=== PATIENT | male | born 1975 ===

== ENCOUNTER 2017-02-08 13:18 | Inpatient (IN) | payer OTHER ==
[2017-02-08 13:44] VITALS: BMI 47.5
--- NOTE | 2017-02-08 14:16 | C.PDOC ---
History Of Present Illness 41 year old male presents to the ED for evaluation after undergoing a hernia repair by Dr. Norman a couple weeks ago. Patient had a routine follow up with Dr. Awan for staple removal yesterday and was noted to have infection of his wound. Patient was advised to present to the ED today for surgery. Patient denies fever, chills, or pain/discomfort at this time. Time Seen by Provider: 02/08/17 13:49 Chief Complaint (Nursing): Abnormal Skin Integrity History Per: Patient History/Exam Limitations: no limitations Onset/Duration Of Symptoms: Days Current Symptoms Are (Timing): Still Present Quality Of Symptoms: denies: Painful Additional History Per: Patient Past Medical History Reviewed: Historical Data, Nursing Documentation, Vital Signs Vital Signs: Last Vital Signs Temp 99.6 F 02/08/17 13:44 Pulse 87 02/08/17 13:44 Resp 20 02/08/17 13:44 BP 165/96 H 02/08/17 13:44 Pulse Ox 96 02/08/17 14:53 - Medical History PMH: No Chronic Diseases Surgical History: No Surg Hx Family History: States: Unknown Family Hx Review Of Systems Skin: Positive for: Other (possible infection of umbilical hernia repair wound ) Physical Exam - Physical Exam Appears: Non-toxic, No Acute Distress Skin: Normal Color, Warm, Dry Head: Atraumatic, Normacephalic Eye(s): bilateral: Normal Inspection Oral Mucosa: Moist Neck: Supple Chest: Symmetrical, No Deformity, No Tenderness Cardiovascular: Rhythm Regular, No Murmur Respiratory: Normal Breath Sounds, No Rales, No Rhonchi, No Wheezing Gastrointestinal/Abdominal: Soft, No Tenderness, No Guarding, No Rebound, Other (panniculus noted. horizontal incision below umbilicus with fernando and surrounding erythema. serosanguinous drainage weeping from wound ) Extremity: Normal ROM, Capillary Refill (less than 2 seconds ) Neurological/Psych: Oriented x3, Normal Speech, Normal Cognition Gait: Steady ED Course And Treatment O2 Sat by Pulse Oximetry: 96 (on RA ) Pulse Ox Interpretation: Normal Progress Note: Case discussed with Dr. Norman, who accepts the patient for admission and advises consult with Dr. Gould and Dr. Harrington. Disposition - Disposition Disposition: HOSPITALIZED Disposition Time: 14:57 Condition: STABLE - POA Present On Arrival: Surgical Site Infection - Clinical Impression Clinical Impression: Postoperative wound infection - Scribe Statement The provider has reviewed the documentation as recorded by the Scribe (Santa Overton) Provider Attestation: All medical record entries made by the Scribe were at my direction and personally dictated by me. I have reviewed the chart and agree that the record accurately reflects my personal performance of the history, physical exam, medical decision making, and the department course for this patient. I have also personally directed, reviewed, and agree with the discharge instructions and disposition.
[2017-02-08] MEDS ORDERED: Midazolam 2 MG/2 ML VIAL ONE (14:37)
[2017-02-08] MEDS ORDERED: Propofol 10 mg/ml Inj (20 ML) ONE ×2 (14:37→15:26)
[2017-02-08] MEDS ORDERED: ceFAZolin IV 2 gm in Dextrose 2 GM/50 ML BAG IVPB ONE (15:19)
[2017-02-08] MEDS ORDERED: Lactated Ringer's 1,000 ML IV ONE (15:25)
[2017-02-08] MEDS ORDERED: Oxycodone/Acetaminophen 5/325 mg Tab PO PRN (15:48)
[2017-02-08] MEDS ORDERED: HYDROmorphone 0.5 mg/0.5 ml ISec IVP PRN (15:54)
[2017-02-08] MEDS ORDERED: Piperacillin/Tazobact 3.375 GM in Sodium Chloride 100 ML IVPB SCH (16:00)
[2017-02-08] MEDS: Piperacill/Tazo 3.375gm in Dex 3.375 GM/50 ML BAG IVPB SCH ×2 (17:10→22:52)
--- NOTE | 2017-02-08 17:10 | CP.PCM.CON ---
History of Present Illness - History of Present Illness History of Present Illness: 41 year old male presents to the ED for evaluation after undergoing a hernia repair by Dr. Norman a couple weeks ago. Patient had a routine follow up with Dr. Awan for staple removal yesterday and was noted to have infection of his wound. Patient was advised to present to the ED today for surgery. Patient denies fever, chills, or pain/discomfort at this time. id consulted for antibiotic management Review of Systems - Constitutional Constitutional: As Per HPI - EENT Eyes: absent: As Per HPI, Blind Spots, Blurred Vision, Change in Vision, Decreased Night Vision, Diplopia, Discharge, Dry Eye, Exophthalmos, Floaters, Irritation, Itchy Eyes, Loss of Peripheral Vision, Pain, Photophobia, Requires Corrective Lenses, Sees Flashes, Spots in Vision, Tunnel Vision, Other Visual Disturbances, Loss of Vision, Other Ears: absent: As Per HPI, Decreased Hearing, Ear Discharge, Ear Pain, Tinnitus, Abnormal Hearing, Disequilibrium, Dizziness, Other Nose/Mouth/Throat: absent: As Per HPI, Epistaxis, Nasal Congestion, Nasal Discharge, Nasal Obstruction, Nasal Trauma, Nose Pain, Post Nasal Drip, Sinus Pain, Sinus Pressure, Bleeding Gums, Change in Voice, Dental Pain, Dry Mouth, Dysphagia, Halitosis, Hoarsness, Lip Swelling, Mouth Lesions, Mouth Pain, Odynophagia, Sore Throat, Throat Swelling, Tongue Swelling, Facial Pain, Neck Pain, Neck Mass, Other - Respiratory Respiratory: absent: As Per HPI, Cough, Dyspnea, Hemoptysis, Dyspnea on Exertion , Wheezing, Snoring, Stridor, Pain on Inspiration, Chest Congestion, Excessive Mucous Production, Change in Mucous Color, Pain with Coughing, Other - Gastrointestinal Gastrointestinal: absent: As Per HPI, Abdominal Pain, Belching, Bloating, Change in Bowel Habits, Change in Stool Character, Coffee Ground Emesis, Constipation, Cramping, Diarrhea, Dyspepsia, Dysphagia, Early Satiety, Excessive Flatus, Fecal Incontinence, Heartburn, Hematemesis, Hematochezia, Loose Stools, Melena, Nausea, Odynophagia, Temesmus, Vomiting, Other - Genitourinary Genitourinary: absent: As Per HPI, Change in Urinary Stream, Difficulty Urinating, Dysuria, Flank Pain, Hematuria, Pyuria, Nocturia, Urinary Incontinence, Urinary Frequency, Urinary Hesitance, Urinary Urgency, Voiding Freq/Small Amts, Freq UTI, Hx Renal/Bladder Calculi, Hx /Renal Surgery, Bladder Distension, Other - Musculoskeletal Musculoskeletal: As Per HPI - Integumentary Integumentary: As Per HPI, Skin Pain, Wounds - Neurological Neurological: absent: As Per HPI, Abnormal Gait, Abnormal Hearing, Abnormal Movements, Abnormal Speech, Behavioral Changes, Burning Sensations, Confusion, Convulsions, Disequilibrium, Dizziness, Numbness, Focal Weakness, Frequent Falls , Headaches, Lack of Coordination, Loss of Vision, Memory Loss, Paresthesias, Radicular Pain, Restless Legs, Sensory Deficit, Syncope, Tingling, Tremor, Vertigo, Weakness, Other Visual Disturbances, Other - Psychiatric Psychiatric: absent: As Per HPI, Abnormal Sleep Pattern, Anhedonia, Anxiety, Behavioral Changes, Change in Appetite, Change in Libido, Confusion, Depression , Difficulty Concentrating, Hallucinations, Homicidal Ideation, Hopelessness, Irritability, Memory Loss, Mood Swings, Panic Attacks, Paranoia, Suicidal Ideation, Visual Hallucinations, Tactile Hallucinations, Other - Endocrine Endocrine: absent: As Per HPI, Change in Body Appearance, Change in Libido, Cold Intolorance, Deepening of Voice, Excessive Sweating, Fatigue, Flushing, Heat Intolorance, Increase in Ring/Shoe/Hat Size, Palpitations, Polydipsia, Polyphagia, Polyuria, Other - Hematologic/Lymphatic Hematologic: absent: As Per HPI, Easy Bleeding, Easy Bruising, Lymphadenopathy, Other Past Patient History - Past Social History Smoking Status: Never Smoked - PSYCHIATRIC Hx Substance Use: No - SURGICAL HISTORY Hx Surgeries: Yes Hx Herniorrhaphy: Yes (x2 "3 years ago") - ANESTHESIA Hx Anesthesia: Yes Meds Allergies/Adverse Reactions: Allergies Allergy/AdvReac Type Severity Reaction Status Date / Time No Known Allergies Allergy Verified 02/08/17 13:41 - Medications Medications: Current Medications Docusate Sodium (Colace) 100 mg PO BID [facility] Enoxaparin Sodium (Lovenox) 40 mg SC DAILY [facility] Hydromorphone HCl (Dilaudid) 0.5 mg IVP Q10M PRN PRN Reason: Pain, moderate (4-7) Stop: 02/08/17 17:54 Dextrose/Sodium Chloride (Dextrose 5%/0.45% Ns 1000 Ml) 1,000 mls @ 80 mls/hr IV .[id number] [facility] Piperacillin Sod/Tazobactam Sod (Zosyn 3.375 Gm Iv Premix) 3.375 gm in 50 mls @ 100 mls/hr IVPB Q6H [facility] Ketorolac Tromethamine (Toradol) 30 mg IVP Q6 PRN PRN Reason: pain 8-10 Stop: 02/13/17 15:49 Ondansetron HCl (Zofran Inj) 4 mg IVP Q6 PRN PRN Reason: Nausea/Vomiting Oxycodone/Acetaminophen (Percocet 5/325 Mg Tab) 2 tab PO Q4H PRN PRN Reason: pain 5-8 Stop: 02/11/17 15:49 Pantoprazole Sodium (Protonix Inj) 40 mg IVP DAILY [facility] Physical Exam - Constitutional Appears: Non-toxic, Chronically Ill - Head Exam Head Exam: NORMOCEPHALIC - Eye Exam Eye Exam: absent: Scleral icterus - ENT Exam ENT Exam: Mucous Membranes Dry - Neck Exam Neck exam: Negative for: Lymphadenopathy - Respiratory Exam Respiratory Exam: Decreased Breath Sounds, Clear to Auscultation Bilateral - Cardiovascular Exam Cardiovascular Exam: REGULAR RHYTHM - GI/Abdominal Exam GI & Abdominal Exam: Diminished Bowel Sounds, Guarding, Hernia, Tenderness - Rectal Exam Rectal Exam: Deferred - Exam Exam: NORMAL INSPECTION - Extremities Exam Extremities exam: Negative for: calf tenderness, pedal edema, tenderness - Back Exam Back exam: absent: CVA tenderness (L), CVA tenderness (R) - Neurological Exam Neurological exam: Alert, CN II-XII Intact, Oriented x3, Reflexes Normal - Psychiatric Exam Psychiatric exam: Depressed - Skin Skin Exam: Dry Results - Vital Signs Recent Vital Signs: Last Vital Signs Temp 99.6 F 02/08/17 13:44 Pulse 87 02/08/17 13:44 Resp 20 02/08/17 13:44 BP 165/96 H 02/08/17 13:44 Pulse Ox 96 02/08/17 14:58 Assessment & Plan (1) Postoperative wound infection Status: Acute - Assessment and Plan (Free Text) Assessment: await cultures cont iv antibiotics add vanco
[2017-02-08] MEDS ORDERED: Pneumococcal 23-Valent Vaccine IM ONE (19:54)
[2017-02-08] MEDS ORDERED: Influenza Vaccine 60 mcg/0.5 mL SYR (4YR UP) IM ONE (19:55)
[2017-02-08] MEDS: Dextrose 5%/0.45% NS 1,000 ML IV SCH (20:24)
--- NOTE | 2017-02-08 22:43 | OP ---
PROCEDURE DATE: 02/08/2017 PREOPERATIVE DIAGNOSES: Morbid obesity with postoperative abdominal wound infection. POSTOPERATIVE DIAGNOSES: Morbid obesity with postoperative abdominal wound infection with necrotizing fasciitis. PROCEDURE PERFORMED: Drainage of wound, debridement of necrotizing fasciitis. SURGEON: Kuashik Norman MD. ANESTHESIA: General. BLOOD LOSS: 30 mL. POSTOPERATIVE CONDITION: Stable. INDICATIONS FOR SURGERY: This is a 41-year-old morbidly obese male, who underwent repair of a large umbilical hernia for which he had to undergo an umbilectomy. He was seen in my office yesterday and was assumed to be developing a wound infection. Because of his size, I felt the best way to deal with it would be in the operating room, so he was admitted to the emergency room today. GROSS FINDINGS: There was a wound infection. There also was some necrotic fascia associated with a system with early necrotizing fasciitis. This was debrieded and at the conclusion of the case, it was a nice clean wound. DESCRIPTION OF PROCEDURE: The patient was taken to the operating room, general anesthesia was administered. The abdomen was prepped and draped. Previous incision fernando were removed and the wound was opened. The distal portions of the wound were healed; however, the central portion was widely opened down to the fascia; some necrotic fascia was noted and debrided. Cultures were taken of the collection and the wound was aggressively debrided and irrigated. Bleeding was controlled using the Bovie. An abdominal wall blood vessel was repaired. Partial tissue transfer closure was performed at the central portion, and wound was packed open with wet saline gauze. The patient tolerated the procedure well. Returned to recovery room in stable condition. Kaushik Norman MD
--- NOTE | 2017-02-08 23:54 | CP.PCM.CON ---
History of Present Illness - History of Present Illness History of Present Illness: Reason for consultatuon: medical management This is a young 41 year old male with h/o umbilical hernia repair and dehisence s/p OR presents to the ED for evaluation after undergoing a hernia repair by Dr. Norman a couple weeks ago. Patient had a routine follow up with Dr. Awan for staple removal yesterday and was noted to have infection of his wound. Patient was advised to present to the ED today for surgery. Patient denies fever, chills, or pain/discomfort at this time. Review of Systems - Review of Systems Systems not reviewed;Unavailable: Acuity of Condition - Constitutional Constitutional: absent: As Per HPI, Anorexia, Chills, Daytime Sleepiness, Excessive Sweating, Fatigue, Fever, Frequent Falls, Headache, Increased Appetite , Lethargy, Malaise, Night Sweats, Snoring, Sleep Apnea, Weight Gain, Weight Loss, Weakness, Other - EENT Eyes: absent: As Per HPI, Blind Spots, Blurred Vision, Change in Vision, Decreased Night Vision, Diplopia, Discharge, Dry Eye, Exophthalmos, Floaters, Irritation, Itchy Eyes, Loss of Peripheral Vision, Pain, Photophobia, Requires Corrective Lenses, Sees Flashes, Spots in Vision, Tunnel Vision, Other Visual Disturbances, Loss of Vision, Other Nose/Mouth/Throat: absent: As Per HPI, Epistaxis, Nasal Congestion, Nasal Discharge, Nasal Obstruction, Nasal Trauma, Nose Pain, Post Nasal Drip, Sinus Pain, Sinus Pressure, Bleeding Gums, Change in Voice, Dental Pain, Dry Mouth, Dysphagia, Halitosis, Hoarsness, Lip Swelling, Mouth Lesions, Mouth Pain, Odynophagia, Sore Throat, Throat Swelling, Tongue Swelling, Facial Pain, Neck Pain, Neck Mass, Other - Cardiovascular Cardiovascular: absent: As Per HPI, Acrocyanosis, Chest Pain, Chest Pain at Rest , Chest Pain with Activity, Claudication, Diaphoresis, Dyspnea, Dyspnea on Exertion, Edema, Irregular Heart Rhythm, Pain Radiating to Arm/Neck/Jaw, Leg Edema, Leg Ulcers, Lightheadedness, Orthopnea, Palpitations, Paroxysmal Nocturnal Dyspnea, Pedal Edema, Radiating Pain, Rapid Heart Rate, Slow Heart Rate, Syncope, Other - Respiratory Respiratory: absent: As Per HPI, Cough, Dyspnea, Hemoptysis, Dyspnea on Exertion , Wheezing, Snoring, Stridor, Pain on Inspiration, Chest Congestion, Excessive Mucous Production, Change in Mucous Color, Pain with Coughing, Other - Gastrointestinal Gastrointestinal: Abdominal Pain - Genitourinary Genitourinary: absent: As Per HPI, Change in Urinary Stream, Difficulty Urinating, Dysuria, Flank Pain, Hematuria, Pyuria, Nocturia, Urinary Incontinence, Urinary Frequency, Urinary Hesitance, Urinary Urgency, Voiding Freq/Small Amts, Freq UTI, Hx Renal/Bladder Calculi, Hx /Renal Surgery, Bladder Distension, Other - Musculoskeletal Musculoskeletal: absent: As Per HPI, Abnormal Gait, Arthralgias, Atrophy, Back Pain, Deformity, Joint Swelling, Limited Range of Motion, Loss of Height, Muscle Cramps, Muscle Weakness, Myalgias, Neck Pain, Numbness, Radiating Pain into Limb, Stiffness, Tingling, Other Past Patient History - Past Medical History & Family History Past Medical History?: Yes - Past Social History Smoking Status: Never Smoked - MUSCULOSKELETAL/RHEUMATOLOGICAL Hx Falls: No - PSYCHIATRIC Hx Substance Use: No - SURGICAL HISTORY Hx Surgeries: Yes Hx Herniorrhaphy: Yes (x2 "3 years ago") - ANESTHESIA Hx Anesthesia: Yes Hx Anesthesia Reactions: No Meds Allergies/Adverse Reactions: Allergies Allergy/AdvReac Type Severity Reaction Status Date / Time No Known Allergies Allergy Verified 02/08/17 13:41 - Medications Medications: Current Medications Docusate Sodium (Colace) 100 mg PO BID [facility] Last Admin: 02/08/17 20:24 Dose: 100 mg Enoxaparin Sodium (Lovenox) 40 mg SC DAILY [facility] Dextrose/Sodium Chloride (Dextrose 5%/0.45% Ns 1000 Ml) 1,000 mls @ 80 mls/hr IV .[id number] [facility] Last Admin: 02/08/17 20:24 Dose: 80 mls/hr Piperacillin Sod/Tazobactam Sod (Zosyn 3.375 Gm Iv Premix) 3.375 gm in 50 mls @ 100 mls/hr IVPB Q6H [facility] Last Admin: 02/08/17 22:52 Dose: 100 mls/hr Ketorolac Tromethamine (Toradol) 30 mg IVP Q6 PRN PRN Reason: pain 8-10 Stop: 02/13/17 15:49 Ondansetron HCl (Zofran Inj) 4 mg IVP Q6 PRN PRN Reason: Nausea/Vomiting Oxycodone/Acetaminophen (Percocet 5/325 Mg Tab) 2 tab PO Q4H PRN PRN Reason: pain 5-8 Stop: 02/11/17 15:49 Pantoprazole Sodium (Protonix Inj) 40 mg IVP DAILY [facility] Physical Exam - Constitutional Appears: No Acute Distress - Head Exam Head Exam: ATRAUMATIC, NORMAL INSPECTION, NORMOCEPHALIC - Eye Exam Eye Exam: EOMI, Normal appearance, PERRL Pupil Exam: NORMAL ACCOMODATION, PERRL - Respiratory Exam Respiratory Exam: Clear to Auscultation Bilateral, NORMAL BREATHING PATTERN - Cardiovascular Exam Cardiovascular Exam: REGULAR RHYTHM - GI/Abdominal Exam Additional comments: post op dressing on ant abdominal wall pt is morbidly obese - Rectal Exam Rectal Exam: Deferred Results - Vital Signs Recent Vital Signs: Last Vital Signs Temp 97.7 F 02/08/17 23:25 Pulse 68 02/08/17 23:25 Resp 20 02/08/17 23:25 BP 130/80 02/08/17 23:25 Pulse Ox 98 02/08/17 23:25 Assessment & Plan (1) Status post umbilical hernia repair, follow-up exam Status: Acute (2) Wound dehiscence, external operation Status: Acute (3) Morbid obesity Assessment and Plan: had 1 on 1 counseling with pt for weight loss Status: Acute (4) Postoperative wound infection Status: Acute
[2017-02-09] MEDS: Piperacill/Tazo 3.375gm in Dex 3.375 GM/50 ML BAG IVPB SCH ×4 (05:25→22:56)
[2017-02-09] MEDS: Dextrose 5%/0.45% NS 1,000 ML IV SCH ×2 (05:29→17:55)
[2017-02-09 07:46] LABS: HEMOGLOBIN 12.6 g/dL (12.0-18.0); MEAN CELL VOLUME 85.4 fL (80.0-94.0); MEAN CORPUSCULAR HEMOGLOBIN 28.6 pg (27.0-31.0); MEAN CORPUSCULAR HGB CONC 33.4 g/dL (33.0-37.0); MEAN PLATELET VOLUME 7.3 fL (7.2-11.7); RBC 4.4 Mil/uL (4.40-5.90); RED CELL DISTRIBUTION WIDTH 14.1 % (11.5-14.5)
[2017-02-09 08:25] LABS: ALB/GLOB RATIO 1.1 (1.0-2.1); ALBUMIN 3.8 g/dL (3.5-5.0); ALT/SGPT 25 U/L (21-72); AST/SGOT 35 U/L (17-59); BLOOD UREA NITROGEN 12 mg/dL (9-20); CALCIUM 8.3 mg/dl (8.6-10.4); GFR AFRICAN-AMERICAN > 60; GFR NON-AFRICAN AMERICAN > 60
[2017-02-09] MEDS: Enoxaparin 40 mg Syringe SC SCH (09:49)
[2017-02-09] MEDS ORDERED: Propofol 10 mg/ml Inj (20 ML) ONE ×3 (12:40→12:53)
[2017-02-09] MEDS ORDERED: Midazolam 2 MG/2 ML VIAL ONE (12:40)
[2017-02-09] MEDS ORDERED: Lactated Ringer's 1,000 ML IV ONE (12:40)
--- NOTE | 2017-02-09 21:02 | OP ---
PROCEDURE DATE: 02/09/2017 PREOPERATIVE DIAGNOSIS: Abdominal abscess with necrotizing fasciitis. POSTOPERATIVE DIAGNOSIS: Abdominal abscess with necrotizing fasciitis. PROCEDURE PERFORMED: Re-drainage of abdominal abscess with debridement of abdominal wall with change of packing and pulse irrigation. SURGEON: Kaushik Norman MD. TYPE OF ANESTHESIA: General. BLOOD LOSS: 20 mL. POSTOPERATIVE CONDITION: Stable. INDICATIONS FOR PROCEDURE: This is a 41-year-old male with a history of an abdominal wound infection and developed necrotizing fasciitis. He was taken to the OR yesterday and underwent a radical debridement and today is taken back for change of packing and evaluation of wound. DESCRIPTION OF PROCEDURE: The patient was taken to the operating room. General anesthesia was administered. The abdomen was prepped and draped. The wound was inspected and any further necrotic material was removed. Any remaining collections were drained and cultured. The bleeding on the abdominal wall was controlled using the Bovie. A large blood vessel was repaired. The wound was pulse irrigated with saline and partially closed via an advancement flap. The central portion was packed open with saline gauze. Patient tolerated the procedure well and returned to recovery room in stable condition. Kaushik Norman MD
--- NOTE | 2017-02-09 23:11 | CP.PCM.PN ---
Subjective - Date & Time of Evaluation Date of Evaluation: 02/09/17 Time of Evaluation: 20:00 - Subjective Subjective: Pt seen and examined, s/p umbilical hernia repair, is post op on post op care as per Objective - Vital Signs/Intake and Output Vital Signs (last 24 hours): Temp Pulse Resp BP Pulse Ox 98.9 F 64 20 150/90 97 02/09/17 16:45 02/09/17 16:45 02/09/17 16:45 02/09/17 16:45 02/09/17 16:45 Intake and Output: 02/09/17 02/10/17 18:59 06:59 Intake Total 650 900 Balance 650 900 - Medications Medications: Current Medications Docusate Sodium (Colace) 100 mg PO BID [facility] Last Admin: 02/09/17 18:44 Dose: 100 mg Enoxaparin Sodium (Lovenox) 40 mg SC DAILY [facility] Last Admin: 02/09/17 09:49 Dose: Not Given Dextrose/Sodium Chloride (Dextrose 5%/0.45% Ns 1000 Ml) 1,000 mls @ 80 mls/hr IV .[id number] [facility] Last Admin: 02/09/17 17:55 Dose: Not Given Piperacillin Sod/Tazobactam Sod (Zosyn 3.375 Gm Iv Premix) 3.375 gm in 50 mls @ 100 mls/hr IVPB Q6H [facility] Last Admin: 02/09/17 22:56 Dose: 100 mls/hr Ketorolac Tromethamine (Toradol) 30 mg IVP Q6 PRN PRN Reason: pain 8-10 Stop: 02/13/17 15:49 Ondansetron HCl (Zofran Inj) 4 mg IVP Q6 PRN PRN Reason: Nausea/Vomiting Oxycodone/Acetaminophen (Percocet 5/325 Mg Tab) 2 tab PO Q4H PRN PRN Reason: pain 5-8 Stop: 02/11/17 15:49 Pantoprazole Sodium (Protonix Inj) 40 mg IVP DAILY [facility] Last Admin: 02/09/17 09:49 Dose: 40 mg - Labs Labs: 02/09/17 07:39 02/09/17 07:39 - Constitutional Appears: No Acute Distress - Head Exam Head Exam: ATRAUMATIC, NORMAL INSPECTION, NORMOCEPHALIC - Eye Exam Eye Exam: EOMI, Normal appearance, PERRL Pupil Exam: NORMAL ACCOMODATION, PERRL - Respiratory Exam Respiratory Exam: Clear to Ausculation Bilateral, NORMAL BREATHING PATTERN - Cardiovascular Exam Cardiovascular Exam: REGULAR RHYTHM, +S1, +S2. absent: Murmur - GI/Abdominal Exam GI & Abdominal Exam: Soft, Normal Bowel Sounds. absent: Tenderness Assessment and Plan (1) Status post umbilical hernia repair, follow-up exam Status: Acute (2) Wound dehiscence, external operation Status: Acute (3) Morbid obesity Status: Acute (4) Postoperative wound infection Status: Acute
[2017-02-10] MEDS: Piperacill/Tazo 3.375gm in Dex 3.375 GM/50 ML BAG IVPB SCH ×4 (04:43→22:17)
[2017-02-10] MEDS: Dextrose 5%/0.45% NS 1,000 ML IV SCH ×2 (04:45→21:48)
[2017-02-10] MEDS: Enoxaparin 40 mg Syringe SC SCH (10:00)
[2017-02-10] MEDS ORDERED: Bupivacaine HCl 0.25% PF (10 ml) Inj ONE (14:55)
[2017-02-10] MEDS ORDERED: Lidocaine 1% Inj (20ml) ONE (14:56)
[2017-02-10] MEDS ORDERED: Lactated Ringer's 1,000 ML IV ONE (15:02)
[2017-02-10] MEDS ORDERED: Midazolam 2 MG/2 ML VIAL ONE (15:10)
[2017-02-10] MEDS ORDERED: Propofol 10 mg/ml Inj (20 ML) ONE ×2 (15:10→15:19)
--- NOTE | 2017-02-10 18:24 | CP.PCM.PN ---
Subjective - Date & Time of Evaluation Date of Evaluation: 02/10/17 Time of Evaluation: 10:00 - Subjective Subjective: s/p ombilical hernia repair iv rx in progress cultures so far neg Objective - Vital Signs/Intake and Output Vital Signs (last 24 hours): Temp Pulse Resp BP Pulse Ox 98.0 F 76 20 147/93 H 97 02/10/17 17:10 02/10/17 17:10 02/10/17 17:10 02/10/17 17:10 02/10/17 17:10 Intake and Output: 02/10/17 02/10/17 06:59 18:59 Intake Total 1550 690 Output Total 700 Balance 1550 -10 - Medications Medications: Current Medications Docusate Sodium (Colace) 100 mg PO BID [facility] Last Admin: 02/10/17 17:32 Dose: 100 mg Enoxaparin Sodium (Lovenox) 40 mg SC DAILY [facility] Last Admin: 02/10/17 10:00 Dose: Not Given Dextrose/Sodium Chloride (Dextrose 5%/0.45% Ns 1000 Ml) 1,000 mls @ 80 mls/hr IV .[id number] [facility] Last Admin: 02/10/17 04:45 Dose: 80 mls/hr Piperacillin Sod/Tazobactam Sod (Zosyn 3.375 Gm Iv Premix) 3.375 gm in 50 mls @ 100 mls/hr IVPB Q6H [facility] Last Admin: 02/10/17 17:33 Dose: 100 mls/hr Ondansetron HCl (Zofran Inj) 4 mg IVP Q6 PRN PRN Reason: Nausea/Vomiting Oxycodone/Acetaminophen (Percocet 5/325 Mg Tab) 2 tab PO Q4H PRN PRN Reason: pain 5-8 Stop: 02/11/17 15:49 Pantoprazole Sodium (Protonix Inj) 40 mg IVP DAILY [facility] Last Admin: 02/10/17 09:54 Dose: 40 mg - Labs Labs: 02/09/17 07:39 02/09/17 07:39 - Constitutional Appears: Non-toxic, Chronically Ill - Head Exam Head Exam: NORMOCEPHALIC - Eye Exam Eye Exam: PERRL - ENT Exam ENT Exam: Mucous Membranes Dry - Neck Exam Neck Exam: absent: Lymphadenopathy - Respiratory Exam Respiratory Exam: Decreased Breath Sounds - Cardiovascular Exam Cardiovascular Exam: REGULAR RHYTHM - GI/Abdominal Exam GI & Abdominal Exam: Distended - Rectal Exam Rectal Exam: Deferred - Exam Exam: NORMAL INSPECTION - Extremities Exam Extremities Exam: absent: Pedal Edema - Back Exam Back Exam: absent: CVA tenderness (L), CVA tenderness (R) Assessment and Plan (1) Postoperative wound infection Status: Acute - Assessment and Plan (Free Text) Plan: cont iv rx and wound care
--- NOTE | 2017-02-10 22:42 | CP.PCM.PN ---
Subjective - Date & Time of Evaluation Date of Evaluation: 02/10/17 Time of Evaluation: 18:00 - Subjective Subjective: Pt underwent OR today and he had closure of umbilical hernia today and he is for discharge tomorrow Objective - Vital Signs/Intake and Output Vital Signs (last 24 hours): Temp Pulse Resp BP Pulse Ox 98.0 F 76 20 147/93 H 97 02/10/17 17:10 02/10/17 17:10 02/10/17 17:10 02/10/17 17:10 02/10/17 17:10 Intake and Output: 02/10/17 02/11/17 18:59 06:59 Intake Total 690 Output Total 700 Balance -10 - Medications Medications: Current Medications Docusate Sodium (Colace) 100 mg PO BID [facility] Last Admin: 02/10/17 17:32 Dose: 100 mg Enoxaparin Sodium (Lovenox) 40 mg SC DAILY [facility] Last Admin: 02/10/17 10:00 Dose: Not Given Dextrose/Sodium Chloride (Dextrose 5%/0.45% Ns 1000 Ml) 1,000 mls @ 80 mls/hr IV .[id number] [facility] Last Admin: 02/10/17 21:48 Dose: 80 mls/hr Piperacillin Sod/Tazobactam Sod (Zosyn 3.375 Gm Iv Premix) 3.375 gm in 50 mls @ 100 mls/hr IVPB Q6H [facility] Last Admin: 02/10/17 22:17 Dose: 100 mls/hr Ondansetron HCl (Zofran Inj) 4 mg IVP Q6 PRN PRN Reason: Nausea/Vomiting Oxycodone/Acetaminophen (Percocet 5/325 Mg Tab) 2 tab PO Q4H PRN PRN Reason: pain 5-8 Stop: 02/11/17 15:49 Pantoprazole Sodium (Protonix Inj) 40 mg IVP DAILY [facility] Last Admin: 02/10/17 09:54 Dose: 40 mg - Labs Labs: 02/09/17 07:39 02/09/17 07:39 - Constitutional Appears: No Acute Distress - Head Exam Head Exam: ATRAUMATIC, NORMAL INSPECTION, NORMOCEPHALIC - Eye Exam Eye Exam: EOMI, Normal appearance, PERRL Pupil Exam: NORMAL ACCOMODATION, PERRL - Respiratory Exam Respiratory Exam: Clear to Ausculation Bilateral, NORMAL BREATHING PATTERN - Cardiovascular Exam Cardiovascular Exam: REGULAR RHYTHM, +S1, +S2. absent: Murmur Assessment and Plan (1) Status post umbilical hernia repair, follow-up exam Status: Acute (2) Wound dehiscence, external operation Status: Acute (3) Morbid obesity Status: Acute (4) Postoperative wound infection Status: Acute
[2017-02-11] MEDS: Piperacill/Tazo 3.375gm in Dex 3.375 GM/50 ML BAG IVPB SCH ×2 (05:16→10:04)
[2017-02-11 07:52] VITALS: BP 162/95; PULSE 78; RESP 20; TEMP 99.8; O2SAT 97
[2017-02-11] MEDS: Enoxaparin 40 mg Syringe SC SCH (10:03)
--- NOTE | 2017-02-11 21:57 | CP.PCM.DIS ---
Provider - Provider Date of Admission: 02/08/17 14:05 Attending physician: Kaushik Norman MD Time Spent in preparation of Discharge (in minutes): 45 Diagnosis - Discharge Diagnosis (1) Status post umbilical hernia repair, follow-up exam Status: Acute (2) Wound dehiscence, external operation Status: Acute (3) Morbid obesity Status: Acute (4) Postoperative wound infection Status: Acute Hospital Course - Lab Results Lab Results: Micro Results 02/09/17 15:30 Abscess - Abdominal Gram Stain - Final 02/09/17 15:30 Abscess - Abdominal Wound Culture - Preliminary No growth. 02/08/17 16:50 Abdomen Gram Stain - Final 02/08/17 16:50 Abdomen Wound Culture - Final Staphylococcus Aureus Corynebacterium Species Most Recent Lab Values WBC 8.0 K/uL (4.8-10.8) 02/09/17 07:39 RBC 4.40 Mil/uL (4.40-5.90) 02/09/17 07:39 Hgb 12.6 g/dL (12.0-18.0) 02/09/17 07:39 Hct 37.6 % (35.0-51.0) 02/09/17 07:39 MCV 85.4 fL (80.0-94.0) 02/09/17 07:39 MCH 28.6 pg (27.0-31.0) 02/09/17 07:39 MCHC 33.4 g/dL (33.0-37.0) 02/09/17 07:39 RDW 14.1 % (11.5-14.5) 02/09/17 07:39 Plt Count 320 K/uL (130-400) 02/09/17 07:39 MPV 7.3 fL (7.2-11.7) 02/09/17 07:39 Sodium 134 mmol/L (132-148) 02/09/17 07:39 Potassium 4.1 mmol/L (3.6-5.2) 02/09/17 07:39 Chloride 99 mmol/L (98-107) 02/09/17 07:39 Carbon Dioxide 30 mmol/L (22-30) 02/09/17 07:39 Anion Gap 9 (10-20) L 02/09/17 07:39 BUN 12 mg/dL (9-20) 02/09/17 07:39 Creatinine 0.9 mg/dL (0.8-1.5) 02/09/17 07:39 Est GFR ( Amer) > 60 02/09/17 07:39 Est GFR (Non-Af Amer) > 60 02/09/17 07:39 Random Glucose 115 mg/dL (75-110) H 02/09/17 07:39 Calcium 8.3 mg/dl (8.6-10.4) L 02/09/17 07:39 Total Bilirubin 0.8 mg/dL (0.2-1.3) 02/09/17 07:39 AST 35 U/L (17-59) 02/09/17 07:39 ALT 25 U/L (21-72) 02/09/17 07:39 Alkaline Phosphatase 48 U/L (38-126) 02/09/17 07:39 Total Protein 7.3 g/dL (6.3-8.3) 02/09/17 07:39 Albumin 3.8 g/dL (3.5-5.0) 02/09/17 07:39 Globulin 3.5 gm/dL (2.2-3.9) 02/09/17 07:39 Albumin/Globulin Ratio 1.1 (1.0-2.1) 02/09/17 07:39 - Hospital Course Hospital Course: Pt underwent OR today and he had closure of umbilical hernia today and he is for discharge today, feeling better will have out pt follow up Discharge Exam - Head Exam Head Exam: NORMOCEPHALIC - Eye Exam Eye Exam: EOMI, Normal appearance, PERRL Pupil Exam: NORMAL ACCOMODATION, PERRL - ENT Exam ENT Exam: Mucous Membranes Moist - Respiratory Exam Respiratory Exam: Clear to PA & Lateral, NORMAL BREATHING PATTERN - Cardiovascular Exam Cardiovascular Exam: REGULAR RHYTHM, +S1, +S2 - GI/Abdominal Exam GI & Abdominal Exam: Normal Bowel Sounds - Neurological Exam Neurological exam: Alert, CN II-XII Intact, Normal Gait, Oriented x3, Reflexes Normal - Skin Skin Exam: Dry, Intact, Normal Color, Warm Discharge Plan - Follow Up Plan Condition: STABLE Disposition: HOME/ ROUTINE Instructions: Wound Infection (DC), Wound Dehiscence (DC) Referrals: Kaushik Norman MD [Staff Provider] -
--- NOTE | 2017-02-13 09:31 | OP ---
PROCEDURE DATE: 02/10/2017 PREOPERATIVE DIAGNOSIS: Abdominal abscess with necrotizing fasciitis. POSTOPERATIVE DIAGNOSIS: Abdominal abscess with necrotizing fasciitis. PROCEDURE PERFORMED: Redrainage of abdominal abscess with debridement and tissue flap closure, abdominal wound. SURGEON: Kaushik Norman MD. ANESTHESIA: General. ESTIMATED BLOOD LOSS: 30 mL. POSTOPERATIVE CONDITION: Stable. DESCRIPTION OF PROCEDURE: The patient was taken to the operating room, general anesthesia administered. The abdomen was prepped and draped. The wound was reopened and the abdominal fascia was closely inspected, found to be intact. The wound was aggressively debrided and pulse irrigated. Bleeding was controlled with the Bovie and abdominal wall blood vessels were repaired. The wound was irrigated with saline and any remaining collections were drained. The tissue flaps were raised and an advancement flap closure was performed with multiple layers of Monocryl subcuticular Monocryl. The patient tolerated the procedure well. Returned to recovery room in stable condition. Kaushik Norman MD
== END 2017-02-11 14:30 | disposition home or self-care (01) | DRG 901 ==
LOC: C.ER 13:18 → C.9E 14:05 → C.3T 19:02
PROVIDERS: ADMIT Surgery; ATTEND Surgery
PROC: 0JB80ZZ Excision of Abdomen Subcutaneous Tissue and Fascia, Open Approach (ICD-10-PCS; 2017-02-08)
PROC: 0J980ZZ Drainage of Abdomen Subcutaneous Tissue and Fascia, Open Approach (ICD-10-PCS; principal; 2017-02-08 14:45)
PROC: 0J980ZZ Drainage of Abdomen Subcutaneous Tissue and Fascia, Open Approach (ICD-10-PCS; 2017-02-09)
PROC: 0JD80ZZ Extraction of Abdomen Subcutaneous Tissue and Fascia, Open Approach (ICD-10-PCS; 2017-02-09)
PROC: 0JD80ZZ Extraction of Abdomen Subcutaneous Tissue and Fascia, Open Approach (ICD-10-PCS; 2017-02-10)
DX: T81.31XA Disruption of external operation (surgical) wound, not elsewhere classified, initial encounter (principal); M72.6 Necrotizing fasciitis; L02.211 Cutaneous abscess of abdominal wall; Z68.42 Body mass index [BMI] 45.0-49.9, adult; E66.01 Morbid (severe) obesity due to excess calories